=== PATIENT | female | born 1980 | race African-American/Black ===

== ENCOUNTER 2024-08-11 07:15 | Day surgery (SDC) | payer OTHER ==
[2024-08-04 15:02] VITALS: BMI 23.8
[2024-08-11] MEDS ORDERED: LIDOCAINE HCL/PF 2% SDV 5ML VIAL ONE (07:25)
[2024-08-11] MEDS ORDERED: PROPOFOL 120 ML ONE (07:25)
[2024-08-11 07:45] VITALS: RESP 18; TEMP 97
[2024-08-11 09:17] VITALS: BP 121/65; PULSE 71
== END 2024-08-11 09:39 | disposition home or self-care (01) ==
LOC: FASU-ENDO 07:15
PROVIDERS: ATTEND Internal Medicine Gastroenterology
PROC: 0DBN8ZX Excision of Sigmoid Colon, Via Natural or Artificial Opening Endoscopic, Diagnostic (ICD-10-PCS; principal; 2024-08-11 08:28)
DX: Z12.11 Encounter for screening for malignant neoplasm of colon (principal); K63.5 Polyp of colon; K57.30 Diverticulosis of large intestine without perforation or abscess without bleeding
CPT/HCPCS: 81025; 88305-TC